=== PATIENT | female | born 1975 | race Caucasian/White ===

== ENCOUNTER 2022-05-21 02:57 | Day surgery (SDC) | payer BC, SELFPAY ==
[2022-05-16 10:52] VITALS: BMI 25.0
--- NOTE | 2022-05-20 10:23 | P.PNAN_ITS ---
Anes - Initial Pre Proc Eval Procedure: Operation Date: 05/21/22 13:45 Proposed Procedures p Colonoscopy - David Paredes MD Date/Time: 05/20/22 10:23 Surgeon: David Paredes MD Pre Op Diagnosis: positive cologuard Patient Data Age: 47 Gender: F Height: 1.65 m Weight: 68.4 kg Allergies Allergy/AdvReac Type Severity Reaction Status Date / Time No Known Allergies Allergy Verified 03/02/20 10:27 Home Medications Medication Instructions Recorded Confirmed Type No Home Medications 01/05/20 03/01/20 History Patient hx anesthesia problems: none Family hx anesthesia problems: none Results Review: All pre-operative results and documents have been reviewed as part of the pre- operative evaluation. [facility] Past Medical History Medical History Chondromalacia, patella Left knee pain Olecranon bursitis, left elbow Smoker Social History Social History (System 03/02/20 @ 10:27 by Fatuma Jean) Smoking packs per day: 0.5 Smoking cigarettes per day: 10.0 Years smoked: 20 Smoking pack-years: 10.00 Smoking status: Light tobacco smoker Tobacco type: cigarettes Alcohol intake: current Drinks per week: 5 Alcohol use details: social drinker Substance use: never Substance use type: does not use Living arrangements: with family Additional living arrangements comments: -- Spiritual care concerns: No Anes - Eval Final PreProcedure Day of Procedure 05/20/22 10:23 Patient weight: overweight Heart: regular rate and rhythm Lungs: clear to auscultation and normal air movement Airway: Mallampati scale class II Neurological: alert and oriented Last oral intake: >/= 8 hours ASA classification: II Emergent: no Anesthetic plan: proceed Anesthesia type and monitoring: general GIVS Results Review: All pre-operative results and documents have been reviewed as part of the pre- operative evaluation. Informed Consent: The patient's anesthetic plan and its attendant risks and benefits were discussed with the patient/family/POA. Questions were solicited and answers provided to the satisfaction of the patient/family/POA.
[2022-05-21 12:26] VITALS: BP 154/105; PULSE 96; RESP 18; TEMP 36.7; O2SAT 100
[2022-05-21] MEDS: LACTATED RINGERS 1,000 ML 150 ML IV CONT (12:36)
--- NOTE | 2022-05-21 13:55 | SUR.OPER ---
Sigmoid colon polyp not retrieved. Dr. Paredes notified
[2022-05-21 13:58] VITALS: BP 141/90; PULSE 100; RESP 18; O2SAT 98
[2022-05-21 14:08] VITALS: BP 132/96; PULSE 76; RESP 18; O2SAT 97
[2022-05-21 14:16] VITALS: BP 145/103; PULSE 79; RESP 18; O2SAT 100
--- NOTE | 2022-05-22 11:36 | PM.HPGS ---
History of Present Illness History of Present Illness Consent: Risks, benefits, and alternatives have been discussed and questions answered. Patient agrees to proceed with procedure. Chief complaint: positive cologuard Narrative: Trish Cline is a 47 year old female who was referred for colon cancer screening. She had performed a Cologuard test which was positive. Review of Systems Review of Systems: All systems reviewed & are unremarkable except as noted in HPI and below PMFSH Past Medical History Medical History Chondromalacia, patella Left knee pain Olecranon bursitis, left elbow Smoker Social History Social History Smoking packs per day: 0.5 Smoking cigarettes per day: 10.0 Years smoked: 20 Smoking pack-years: 10.00 Smoking status: Light tobacco smoker Tobacco type: cigarettes Alcohol intake: current Drinks per week: 5 Alcohol use details: social drinker Substance use: never Substance use type: does not use Living arrangements: with family Additional living arrangements comments: -- Spiritual care concerns: No Meds Home Medications and Allergies Home Medications Medication Instructions Recorded Confirmed Type No Home Medications 01/05/20 05/21/22 History Allergies Allergy/AdvReac Type Severity Reaction Status Date / Time No Known Allergies Allergy Verified 05/21/22 12:23 Vital Signs Vital Signs - 24 hr 05/21/22 12:26 05/21/22 13:58 05/21/22 14:08 Temperature 36.7 C Pulse Rate 96 100 76 Respiratory Rate 18 18 18 Blood Pressure 154/105 H 141/90 H 132/96 H Pulse Oximetry 100 98 97 Oxygen Delivery Room Air Room Air Room Air 05/21/22 14:16 Temperature Pulse Rate 79 Respiratory Rate 18 Blood Pressure 145/103 H Pulse Oximetry 100 Oxygen Delivery Room Air Exam Const: General: alert Orientation/consciousness: patient oriented x3 Resp: Auscultation: clear to auscultation bilaterally Cardio: Rhythm: regular rhythm GI: GI Palp: Yes Soft to palpation and No Tenderness to palpation present (GI) Neuro: General: patient oriented x3 Assessment and Plan Assessment and plan (1) Colon cancer screening: Code(s): Z12.11 - Encounter for screening for malignant neoplasm of colon Status: Acute Assessment and Plan: Colonoscopy with possible biopsy or polypectomy or cautery or injection of substances.
== END 2022-05-21 14:32 | disposition home or self-care (01) ==
PROVIDERS: PCP Family Medicine; Visit Provider Internal Medicine Gastroenterology
PROC: 0DJD8ZZ Inspection of Lower Intestinal Tract, Via Natural or Artificial Opening Endoscopic (ICD-10-PCS; CPT 45378; principal; 2022-05-21 13:45)
DX: Z12.11 Encounter for screening for malignant neoplasm of colon (principal); K63.5 Polyp of colon; R19.5 Other fecal abnormalities; F17.210 Nicotine dependence, cigarettes, uncomplicated
CPT/HCPCS: 45380; J2001; J2250; J2704; J7120

== ENCOUNTER 2024-04-18 19:11 | Emergency (ER) | payer BC, SELFPAY ==
[2024-04-18 19:18] VITALS: BP 151/112; PULSE 106; RESP 20; TEMP 36.3; O2SAT 100
--- NOTE | 2024-04-18 19:31 | ED_ITS ---
HPI - General Adult General Chief complaint: Skin/Abscess/Foreign Body Stated complaint: poss abcess/double masectomy Source: patient Mode of arrival: ambulatory Limitations: no limitations History of Present Illness HPI narrative: Patient presents for evaluation of her left breast surgical incision. She indicates she has breast cancer and had a double mastectomy with reconstructive surgery [address] Pineda at [facility]. She has noticed a little bit of asymmetry with the left breast appearing slightly larger than the right since that time. She noted a little bit of redness in the left breasts and saw some pain fluid draining from the left breast surgical incision today. She came in for further evaluation. She denies any fever, chills, nausea, vomiting. She is not diabetic. She does not smoke. She indicates she is not having any worsening pain from that that she has had at baseline postoperatively. She is taking ibuprofen and Tylenol for symptoms. Related Data Home Medications Medication Instructions Recorded Confirmed lisinopril 20 mg tablet mg 04/18/24 Allergies Allergy/AdvReac Type Severity Reaction Status Date / Time No Known Allergies Allergy Verified 05/21/22 12:23 Review of Systems Review of Systems: CONSTITUTIONAL: Denies fever, chills, or sweats. EYES: Denies visual changes, redness, or discharge. ENT: Denies rhinorrhea, congestion, sore throat, or otalgia. CARDIOVASCULAR: Denies chest pain, palpitations, or edema. RESPIRATORY: Denies cough or dyspnea. GASTROINTESTINAL: Denies abdominal pain, nausea, vomiting, or diarrhea. GENITOURINARY: Denies dysuria or hematuria. SKIN: Reports redness and pain drainage from left breast surgical incision MUSCULOSKELETAL: Reports mild bilateral breast discomfort. Denies back pain, joint pain NEUROLOGIC: Denies headache, numbness, dizziness, or weakness. PSYCHIATRIC: Denies anxiety or depression. [facility] Past Medical History Medical History Breast asymmetry following reconstructive surgery Breast cancer Chondromalacia, patella Left knee pain Olecranon bursitis, left elbow Smoker Surgical History Surgical History H/O mastectomy Family History Family History Father Family history unknown Social History Social History (Updated 04/18/24 @ 19:34 by HANNAH SotoP, ) Smoking packs per day: 0.5 Smoking cigarettes per day: 10.0 Years smoked: 20 Smoking pack-years: 10.00 Smoking status: Former smoker Tobacco type: cigarettes Alcohol intake: current Drinks per week: 5 Alcohol use details: social drinker Substance use: never Substance use type: does not use Living arrangements: with family Additional living arrangements comments: -- Spiritual care concerns: No Exam Narrative: GENERAL: Well-appearing, well-nourished, and in no acute distress. HEAD: Normocephalic, atraumatic. EYES: PERRLA and EOMI. ENT: Nares clear, no rhinorrhea or epistaxis. Mucous membranes moist. Oropharynx without tonsillar hypertrophy exudate or other lesions. Bilateral TMs pearly alejo nonbulging NECK: Supple. No adenopathy or masses. No carotid bruits or JVD CHEST: Clear to auscultation. No respiratory distress. No wheezes rales or rhonchi HEART: Regular rate and rhythm. No murmur heard. Normal peripheral pulses. ABDOMEN: Soft, nontender, nondistended, normal active bowel sounds. EXTREMITIES: Normal range of motion. No edema. SKIN: There is a linear surgical incision transversely beneath the left breast which has some yellow granulation tissue and a scant amount of milky white drainage. There is some erythema along the lower lateral left side of the left breast. There appears to be some fluctuance present. NEURO: No focal deficits. Alert and oriented x3. PSYCH: Normal mood and affect. Course Course Emergency Course: This is a 49-year-old female who presented for evaluation of her breast surgical incision. Is unclear whether she has a drainable fluid collection. I recommended she go to the hospital for CT imaging or ultrasound. She declined. She would like to follow-up with her breast surgeon tomorrow. I did advise if she has a drainable fluid collection she could become quite ill. She indicates that they have a breast surgeon on-call at [facility] per she receives her care. I did obtain a wound culture tonight and will send and Bactrim and cephalexin. She should contact her breast surgeon tomorrow go to the emergency department if she has worsening redness, swelling, pain, fever or vomiting. Patient in agreement plan of care. Level of Care: Express Care Visit Vital Signs Vital signs: Vital Signs Temperature 36.3 C L 04/18/24 19:18 Pulse Rate 106 H 04/18/24 19:18 Respiratory Rate 20 04/18/24 19:18 Blood Pressure 151/112 H 04/18/24 19:18 Pulse Oximetry 100 04/18/24 19:18 Oxygen Delivery Room Air 04/18/24 19:18 Temperature 36.3 C L 04/18/24 19:18 Pulse Rate 106 H 04/18/24 19:18 Respiratory Rate 20 04/18/24 19:18 Blood Pressure 151/112 H 04/18/24 19:18 Pulse Oximetry 100 04/18/24 19:18 Oxygen Delivery Room Air 04/18/24 19:18 Medical Decision Making Vital Signs Vital Signs: Vital Signs Temperature 36.3 C L 04/18/24 19:18 Pulse Rate 106 H 04/18/24 19:18 Respiratory Rate 20 04/18/24 19:18 Blood Pressure 151/112 H 04/18/24 19:18 Pulse Oximetry 100 04/18/24 19:18 Oxygen Delivery Room Air 04/18/24 19:18 Temperature 36.3 C L 04/18/24 19:18 Pulse Rate 106 H 04/18/24 19:18 Respiratory Rate 20 04/18/24 19:18 Blood Pressure 151/112 H 04/18/24 19:18 Pulse Oximetry 100 04/18/24 19:18 Oxygen Delivery Room Air 04/18/24 19:18 Discharge Plan Discharge Clinical Impression: Mastitis Patient Disposition: Home, Self-Care Condition: Stable Instructions: Antibiotic Form, Mastitis (ED) Additional Instructions: PLEASE CALL DR PINEDA TOMORROW FOR AN APPOINTMENT IF YOU HAVE WORSENING REDNESS, SWELLING OR PAIN PLEASE GO TO THE EMERGENCY DEPARTMENT FOR CT SCAN TO RULE OUT ABSCESS FORMATION. Prescriptions: New sulfamethoxazole-trimethoprim [Bactrim DS] 800-160 mg tablet 1 tablet PO Q12H Qty: 20 0RF cephalexin 500 mg capsule 500 mg PO Q6H Qty: 40 0RF No Action lisinopril 20 mg tablet Follow-up/Referrals: Harms,Martín Hawk M.D. [Primary Care Provider] - Time of Disposition: 19:31
== END 2024-04-18 19:35 | disposition home or self-care (01) ==
PROVIDERS: Emergency Provider Nurse Practitioner; PCP Family Medicine
DX: T81.49XA Infection following a procedure, other surgical site, initial encounter (principal); N61.0 Mastitis without abscess; Z85.3 Personal history of malignant neoplasm of breast; Z90.13 Acquired absence of bilateral breasts and nipples; Z87.891 Personal history of nicotine dependence
CPT/HCPCS: 87070; 87075; 87181; 87205; 99213; G0463